=== PATIENT | male | born 1940 | race Caucasian/White ===

== ENCOUNTER 2017-07-16 14:17 | Outpatient (CLI) | payer BC ==
--- NOTE | 2017-07-16 16:04 | RAD ---
CERVICAL SPINE THREE VIEWS: Technique: Lateral views were obtained in neutral, flexion, and extension positions. History: Neck pain. FINDINGS: Cervical vertebrae maintain normal height and alignment. Disc spaces are preserved. There are mild to moderate degenerative changes. Slight anterior listhesis at C4-5 measured at 2-3 mm in the neutral p osition does not appear to significantly change with flexion and extension. There is slight anterolis thesis at C5-6 which does exacerbate with flexion. IMPRESSION: Degenerative changes as described above. POS: [facility]
--- NOTE | 2017-07-16 17:11 | MRI ---
MRI CERVICAL SPINE WITHOUT CONTRAST: Date: 07/16/17 HISTORY: Neck pain for many years. Previous football injuries. COMPARISON: None. TECHNIQUE: Cervical spine MRI is performed without intravenous Gadolinium administration. Multisequential, multi planar imaging is performed. FINDINGS: Appropriate T1 marrow signal intensity of the cervical vertebra. Cervical spine vertebral body height is maintained. No fracture. No significant STIR hyperintensity suggests edema or ligamentous injury. Visualized brain parenchyma, cervicomedullary junction, cervical cord, and the upper thoracic cord kitchen ve a normal size and signal intensity. C2-C3: No significant disc osteophyte complex. No significant central canal stenosis. Neural foramina are pa tent. C3-C4: No significant disc osteophyte complex. No significant central canal stenosis. Right neural foramen i s patent. Mild left foraminal narrowing due to degenerative change of the uncovertebral joint and lef t facet hypertrophy. C4-C5: No significant disc osteophyte complex. No significant central canal stenosis. Neural foramina are pa tent. There is asymmetric right facet hypertrophy. C5-C6: Right paracentral disc osteophyte complex abuts the thecal sac. There is mild deformity of the right hemicord. Mild central canal stenosis. No T2 hyperintensity in the cord. Neural foramina are patent b ilaterally. C6-C7: No significant disc osteophyte complex. No significant central canal stenosis. Foramina are patent bi laterally. C7-T1: No significant disc osteophyte complex. No significant central canal stenosis. Neural foramina are pa tent. IMPRESSION: Degenerative changes of the cervical spine as above. POS: [facility]
== END 2017-07-16 14:18 | disposition home or self-care (01) ==
LOC: TBSIIMAG 14:17
PROVIDERS: ATTEND Neurological Surgery
DX: M50.30 Other cervical disc degeneration, unspecified cervical region (principal); M47.812 Spondylosis without myelopathy or radiculopathy, cervical region
CPT/HCPCS: 72040; 72141

== ENCOUNTER 2018-12-08 10:36 | Outpatient (CLI) | payer BC ==
[~2018-12-08 10:36] MED LIST: Iopamidol 370 76% 100 ML VIAL ONE
[2018-12-08 11:11] LABS: Estimated GFR-MDRD - POC Greater than 90
--- NOTE | 2018-12-08 11:46 | CT ---
CT ANGIOGRAM CHEST WITH CONTRAST, AND 3-D VOLUME RENDERING CLINICAL INDICATION: Aortic ectasia. COMPARISON: None FINDINGS: Pulmonary arteries: No significant filling defect is identified within the pulmonary arteries. Aorta: The ascending thoracic aorta is ectatic with maximal dimension of 4.1 cm. The descending thora cic aorta measures 3.3 cm. Vascular calcifications are seen in the coronary arteries as well as involving the thoracic aorta. There is no evidence of an aortic dissection. Lungs: There are parenchymal changes seen within the left lung base which are worrisome for infectiou s process/pneumonia. Follow-up to resolution is recommended. Filling defects are seen in a few left lower lobe bronchi which may be related to mucous plugging. Linear areas of scarring versus atelectas is are seen in the right middle lobe and lingula. There are pleural based nodular densities along the minor fissure probably related to areas of mild nodular pleural thickening. Mediastinum: There is no evidence of lymphadenopathy. Thyroid gland: Normal CT appearance. Osseous structures: Degenerative changes are seen in the spine. Upper abdomen: There is incomplete visualization of an exophytic fluid attenuation density anterior a spect superior pole left kidney likely related to a cyst. There is also incomplete visualization of an additional smaller hypodense lesion within the medial cortex of the superior pole left kidney. A l obulated hypodense structure is seen at the superior pole right kidney measuring 2.1 cm. Given incomplete visualization of these hypodense structures, follow-up renal sonogram is recommended for f urther characterization. The remainder of the upper abdomen demonstrates a grossly normal CT appearance for phase of imaging. IMPRESSION: 1. Incompletely evaluated hypodense lesion superior pole of each kidney. Renal sonogram is recommende d for further evaluation. 2.Parenchymal changes left lung base which may be related to pneumonia. Clinical evaluation for evide nce of pneumonia is recommended, and follow-up to resolution is also recommended. 3..Mild ectasia of the ascending thoracic aorta. There is no evidence of an aortic dissection. Vascul ar calcifications are seen in the coronary arteries and involving the thoracic aorta. 4. No CT evidence of a pulmonary embolus.
== END 2018-12-08 10:37 | disposition home or self-care (01) ==
LOC: SCSCT 10:36
PROVIDERS: ATTEND Internal Medicine Cardiovascular Disease
DX: I77.819 Aortic ectasia, unspecified site (principal); N28.9 Disorder of kidney and ureter, unspecified; I77.810 Thoracic aortic ectasia; I25.10 Atherosclerotic heart disease of native coronary artery without angina pectoris; I70.0 Atherosclerosis of aorta
CPT/HCPCS: 71275; 82565; Q9967

== ENCOUNTER 2019-01-19 14:30 | Outpatient (CLI) | payer BC ==
--- NOTE | 2019-01-19 16:04 | ULT ---
ULTRASOUND RETROPERITONEUM COMPLETE: (RENAL) DATE: 01/19/2019. HISTORY: A 78-year-old male with bilateral upper pole renal lesions found on CT angiogram of chest. FINDINGS: Right kidney: 13.5 x 5.5 x 5 cm. Left kidney: 12 x 7 x 7 cm. At the apex of the upper pole of the right renal cortex, there is an exophytic approximately 1.5 x 1 cm hypoechoic mass. It is too small to characterize as cystic or solid. Cyst is slightly favored. It corresponds to the right apical renal lesion found CTA of the chest. A 2 x 2 cm right renal mid pole parapelvic renal cyst. A 1.5 x 1.5 x 1.5 cm exophytic cortical cyst protruding from the lateral aspect of the left renal mid pole. Additional similar size adjacent cyst on the left. Urinary bladder volume 120 mL at the time of scan. Bilateral ureteral jets visualized. IMPRESSION: 1. A few bilateral small renal cysts. 2. The small exophytic 1 cm lesion from the apex of the right renal upper pole cortex is too small t o definitively characterize, on both this ultrasound and the CTA. 3. Recommend multiphase CT of abdomen with and without contrast (renal mass protocol) for further ev aluation. IRWIN Conner POS: [facility]
== END 2019-01-19 14:31 | disposition home or self-care (01) ==
LOC: SCSULT 14:30
PROVIDERS: ATTEND Internal Medicine Cardiovascular Disease
DX: N28.1 Cyst of kidney, acquired (principal); N28.89 Other specified disorders of kidney and ureter
CPT/HCPCS: 76770

== ENCOUNTER 2019-02-09 09:32 | Outpatient (CLI) | payer BC ==
[2019-02-09 15:02] LABS: Estimated GFR-MDRD - POC Greater than 90
--- NOTE | 2019-02-09 15:47 | CT ---
CT ABDOMEN AND PELVIS WITH AND WITHOUT IV CONTRAST 02/09/2019 CLINICAL INFORMATION: Cystic bilateral renal lesions. COMPARISON: CTA thorax 12/08/2018. Technique: Multiple contiguous axial CT images are obtained through the abdomen and pelvis with IV contrast. Cor onal reformatted images are provided. FINDINGS: Lower Chest: The parenchymal lung changes at the left lung base have improved likely related to impro vement in pneumonia. There are now slight linear and patchy parenchymal changes at the medial left lung base which could be related to either atelectasis or pneumonitis. There has also been interval d evelopment of parenchymal densities within the right lower lobe worrisome for pneumonia/infectious process. There is minimal bronchiectasis present at the right lung base as well. Vessels: Vascular calcifications are seen in the abdominal aorta and involving the iliac arteries. Abdomen: Portal vein:Patent Gallbladder: Within normal limits for CT imaging. Liver: within normal limits. Spleen: within normal limits. Pancreas: within normal limits. Adrenals: within normal limits. Kidneys: There are multiple subcentimeter too small to characterize hypodense lesions in each kidney in addition to larger hypodense lesions majority of which demonstrate attenuation coefficients compatible with renal cysts. There is a lobulated superior pole right renal cystic lesion which demon strates attenuation coefficient compatible with a cyst. A hyperdense exophytic cystic lesion is seen at the posterior aspect midportion left kidney. No enhancing renal lesions are identified. There are 2 nonobstructing approximately 3 mm calculi in the midportion right kidney with a tiny punc diaz nonobstructing calculus inferior pole left kidney. Bowel: Normal caliber. Appendix: Not visualized, but no secondary signs are seen to suggest appendicitis. Peritoneum: No ascites or free air; no fluid collection. Mesentery and Retroperitoneum: No enlarged mesenteric or retroperitoneal lymph nodes. Abdominal Wall: within normal limits. Pelvis: Reproductive Organs: The prostate gland is heterogeneous and enlarged measuring 5.7 cm in transverse dimensions. Pelvis within normal limits. Bladder: within normal limits. 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 IMPRESSION: 1. Right lower lobe pneumonia. Follow-up to resolution is recommended. 2. Improvement in parenchymal changes at the left lung base, but there are new linear parenchymal mimi nges at the medial left lung base most likely attributable to atelectasis; although, pneumonitis left lung base cannot be entirely excluded. 3. Bilateral renal cysts and subcentimeter too small to characterize hypodense lesions in each kidney . In addition there is a Bosniak type II renal cystic lesion in the left kidney. No enhancing renal mass is identified. 4. Nonobstructing bilateral renal calculi.
== END 2019-02-09 09:33 | disposition home or self-care (01) ==
LOC: SCSCT 09:32
PROVIDERS: ATTEND Internal Medicine Cardiovascular Disease
DX: N28.1 Cyst of kidney, acquired (principal); J18.1 Lobar pneumonia, unspecified organism; R91.8 Other nonspecific abnormal finding of lung field; N28.9 Disorder of kidney and ureter, unspecified
CPT/HCPCS: 74178; 82565

== ENCOUNTER 2019-04-19 10:35 | Outpatient (CLI) | payer BC ==
[2019-04-19 10:58] LABS: Estimated GFR-MDRD - POC Greater than 90
[2019-04-19] MEDS ORDERED: ISOVUE-370 76%-LOCM 1 ML ONE (15:26)
--- NOTE | 2019-04-19 17:29 | CT ---
CT OF THE THORAX WITH IV CONTRAST: 04/19/19 INDICATION: History of lung mass. COMPARISON: Prior CT of the abdomen and pelvis with contrast dated 02/09/19 and a CTA of the thorax dated 12/08/18. FINDINGS: The air space consolidation in the left lower lobe on the prior CTA examination in November 2018 is rita r. There are areas of subsegmental volume loss involving both lower lobes. The right lower lobe pneum onia seen on the CT examination in the abdomen and pelvis dated 02/09/19 has intervally cleared. There areas of subpleural nodularity involving the right upper lobe adjacent to the right minor fissure on image 75 of series 3 measuring 1.1 cm which is stable. Previously seen adjacent nodule in the right upper lobe near the right minor fissure has resolved. This may reflect an area of mild atelectasis. N o enlarged lymph nodes are evident. There is scattered coronary artery and thoracic aortic calcificat ions. The visualized upper abdomen demonstrates stable renal cysts. Adrenal glands are normal appeari ng. There are scattered degenerative and osteoarthritic change. IMPRESSION: 1. Resolution of the air space consolidation involving the right lower lobe seen on the comparis on CT of the abdomen and pelvis dated 02/09/19. Left lower lobe consolidation seen on the comparison e xamination dated 12/08/18 has resolved. 2. There are areas of subsegmental volume loss involving both lower lobes. 3. Subpleural pulmonary nodule right upper lobe adjacent to the right minor fissure is stable in size measuring 1.1 cm. This may reflect an area of persistent subsegmental atelectasis. A similar ap pearing nodule seen within the medial aspect of the lower right upper lobe adjacent to the right tg r fissure, has resolved. As a conservative measure, a follow-up CT examination in 6 months is recomme nded to document stability. POS: [facility]
== END 2019-04-19 10:36 | disposition home or self-care (01) ==
LOC: BICCT 10:35
PROVIDERS: ATTEND Internal Medicine Critical Care Medicine
DX: R91.8 Other nonspecific abnormal finding of lung field (principal)
CPT/HCPCS: 71260; 82565; Q9966

== ENCOUNTER 2020-04-19 08:56 | Outpatient (CLI) | payer BC ==
[2020-04-19 09:51] LABS: Estimated GFR-MDRD - POC Greater than 90
--- NOTE | 2020-04-19 10:11 | CT ---
EXAM: CT of the chest with contrast HISTORY: Lung nodule COMPARISON: 04/19/2019, 12/08/2018 TECHNIQUE: Multiple contiguous axial images were obtained in a CT the chest with contrast. Coronal an d sagittal reformats were performed. FINDINGS: HEART: I ventricular cardiomegaly is seen. Calcifications are seen in the coronary arteries. MEDIASTINUM: No hilar or mediastinal lymphadenopathy. LUNGS: There is a stable 1.2 cm x 0.4 cm area of nodularity along the right minor fissure. This likel y represents either scarring or atelectasis. No other pulmonary nodules are seen. Atelectasis is seen in both lung bases. PLEURAL SPACE: No pneumothorax or pleural effusion. CHEST WALL SOFT TISSUES: Unremarkable OSSEOUS STRUCTURES: Degenerative changes in the spine. VISUALIZED SUBDIAPHRAGMATIC STRUCTURES: Left renal cysts measuring up to 2.1 cm in size. IMPRESSION: Stable area of nodularity along the right minor fissure may represent scarring or focal atelectasis
[2020-04-19] MEDS ORDERED: Iopamidol-370 76% 500 ML 1 ML ONE (13:24)
== END 2020-04-19 08:57 | disposition home or self-care (01) ==
LOC: BICCT 08:56
PROVIDERS: ATTEND Internal Medicine Critical Care Medicine
DX: R91.1 Solitary pulmonary nodule (principal); R91.8 Other nonspecific abnormal finding of lung field
CPT/HCPCS: 71260; 82565; Q9967

== ENCOUNTER 2023-03-07 15:37 | Inpatient (IN) | payer MEDICARE ==
[2023-03-07 17:36] VITALS: BMI 23.6
[2023-03-07] MEDS ORDERED: Ondansetron PF 4 MG/2 ML Vial IVP PRN (19:18)
[2023-03-07] MEDS: Aspirin 81 mg Enteric Coated Tablet PO SCH (21:29)
[2023-03-07] MEDS: Heparin 5,000 UNITS/ML VIAL SC SCH (21:31)
[2023-03-07] MEDS ORDERED: Acetaminophen 325 MG TAB PO PRN (21:47)
[2023-03-07] MEDS: Transdermal Patch Removal TOP SCH (22:17)
[2023-03-08] MEDS: Sodium Chloride 0.9% 1,000 ML IV SCH ×2 (00:28→11:35)
[2023-03-08] MEDS ORDERED: Digoxin 0.5 MG/2 ML AMP SLOW IVP SCH ×3 (02:30→15:00)
[2023-03-08 05:20] LABS: #Basophils 0.1 thou/uL (0.0-0.2); #Monocytes 0.7 thou/uL (0.11-0.59); #Neutrophils 12.8 thou/uL (1.40-6.50); %Basophils 0.4 % (0.0-1.0); %Eosinophils 0.1 % (0.0-10.0); %Lymphocytes 3.4 % (21.0-51.0); %Monocytes 4.7 % (0.0-10.0); %Neutrophils 90.7 % (42.0-75.0); Hemoglobin 13.3 g/dL (14.0-18.0); Mean Corpuscular HGB CONC 32.3 g/dL (32.0-36.0); Mean Corpuscular Hemoglobin 33.9 pg (27.0-31.0); Mean Corpuscular Volume 105.1 fl (78.0-98.0); Mean Platelet Volume 10.4 fL (7.4-10.4); Platelet Count 126 10x3/uL (130-400); RBC Distribution Width 13.4 % (11.5-14.5); Red Blood Cell (RBC) Count 3.92 mill/uL (4.70-6.10); White Blood Cell (WBC) Count 14.2 10x3/uL (4.8-10.8)
[2023-03-08 05:43] LABS: ALT (SGPT) 27 U/L (8-55); AST (SGOT) 46 U/L (5-34); Albumin 3.2 g/dL (3.4-4.8); Alkaline Phosphatase 46 U/L (40-110); Anion Gap 13 mmol/L (10-20); BUN (Urea Nitrogen) 35 mg/dL (8.4-25.7); Bilirubin, Total 0.7 mg/dL (0.2-1.2); Calc. Creatinine Clearance 48 mL/min (70-130); Calcium 8.7 mg/dL (7.8-10.44); Carbon Dioxide 19 mmol/L (23-31); Chloride 108 mmol/L (98-107); Estimated GFR 50; Globulin 2.7 g/dL (2.4-3.5); Glucose 103 mg/dL (83-110); Potassium 4.1 mmol/L (3.5-5.1); Protein, Total 5.9 g/dL (5.8-8.1); Sodium 136 mmol/L (136-145)
[2023-03-08] MEDS ORDERED: LevoFLOXacin 750 MG TAB PO SCH (06:00)
[2023-03-08] MEDS ORDERED: Spironolactone 25 MG TAB PO SCH (08:00)
[2023-03-08 08:31] LABS: CKMB 3.7 ng/mL (0-6.6)
[2023-03-08 08:32] LABS: Lactic Acid 1.5 mmol/L (0.5-2.2)
[2023-03-08] MEDS ORDERED: Lisinopril 2.5 MG TAB PO SCH (09:00)
[2023-03-08] MEDS: Cholecalciferol 1,000 UNITS (25 MCG) TAB PO SCH (09:06)
[2023-03-08] MEDS: Lidocaine 4% Patch TD SCH (09:06)
[2023-03-08] MEDS: Heparin 5,000 UNITS/ML VIAL SC SCH ×3 (09:06→20:23)
[2023-03-08] MEDS: Cyanocobalamin (Vitamin B-12) 1,000 MCG TAB PO SCH (09:06)
[2023-03-08] MEDS: Rosuvastatin 20 MG TAB PO SCH (09:06)
[2023-03-08] MEDS: Folic Acid 1 MG TAB PO SCH (09:06)
[2023-03-08] MEDS: Donepezil HCl 10 MG TAB PO SCH (09:06)
[2023-03-08 09:43] LABS: Magnesium 1.8 mg/dL (1.6-2.6)
[2023-03-08 11:38] LABS: CKMB 4.1 ng/mL (0-6.6)
[2023-03-08] MEDS ORDERED: Piperacillin/Tazobactam 3.375 GM in Sodium Chloride 0.9% 100 ML IVPB SCH (13:15)
[2023-03-08] MEDS ORDERED: Polyethylene Glycol 3350 17 GM Packet PO SCH (14:15)
[2023-03-08] MEDS: Piperacillin/Tazobactam 3.375 GM in Sodium Chloride 0.9% 100 ML IVPB SCH (17:11)
[2023-03-08] MEDS: Aspirin 81 mg Enteric Coated Tablet PO SCH (20:22)
[2023-03-08] MEDS: Transdermal Patch Removal TOP SCH (20:23)
[2023-03-09] MEDS: Piperacillin/Tazobactam 3.375 GM in Sodium Chloride 0.9% 100 ML IVPB SCH ×2 (02:46→10:29)
[2023-03-09 04:48] LABS: #Eosinphils 0.1 thou/uL (0.0-0.7); #Monocytes 0.5 thou/uL (0.11-0.59); #Neutrophils 6.9 thou/uL (1.40-6.50); %Basophils 0.2 % (0.0-1.0); %Eosinophils 0.7 % (0.0-10.0); %Monocytes 6.6 % (0.0-10.0); %Neutrophils 84.1 % (42.0-75.0); Hemoglobin 13.6 g/dL (14.0-18.0); Mean Corpuscular HGB CONC 33.9 g/dL (32.0-36.0); Mean Corpuscular Hemoglobin 33.1 pg (27.0-31.0); Mean Platelet Volume 11.1 fL (7.4-10.4); Platelet Count 108 10x3/uL (130-400); RBC Distribution Width 12.9 % (11.5-14.5); Red Blood Cell (RBC) Count 4.11 mill/uL (4.70-6.10); White Blood Cell (WBC) Count 8.2 10x3/uL (4.8-10.8)
[2023-03-09 05:02] LABS: Manual Diff?? YES; Mean Corpuscular Volume 97.6 fl (78.0-98.0)
[2023-03-09 05:14] LABS: Digoxin 1.49 ng/mL (0.8-2.0); Phosphorus 2.2 mg/dL (2.3-4.7)
[2023-03-09 05:15] LABS: ALT (SGPT) 30 U/L (8-55); AST (SGOT) 44 U/L (5-34); Albumin 3.1 g/dL (3.4-4.8); Alkaline Phosphatase 48 U/L (40-110); Anion Gap 13 mmol/L (10-20); BUN (Urea Nitrogen) 28 mg/dL (8.4-25.7); Bilirubin, Total 0.6 mg/dL (0.2-1.2); Calc. Creatinine Clearance 60 mL/min (70-130); Calcium 8.7 mg/dL (7.8-10.44); Carbon Dioxide 19 mmol/L (23-31); Chloride 111 mmol/L (98-107); Estimated GFR 66; Globulin 2.7 g/dL (2.4-3.5); Glucose 105 mg/dL (83-110); Magnesium 2.1 mg/dL (1.6-2.6); Protein, Total 5.8 g/dL (5.8-8.1); Sodium 139 mmol/L (136-145)
[2023-03-09 06:27] LABS: Band 15 % (5-11); Lymphocytes 8 % (21-51); Monocytes 2 % (0-10); Neutrophil 74 % (42-75); Platelet Adequacy Comment Platelets Decreased; Total Cell Count 100
[2023-03-09] MEDS ORDERED: LevoFLOXacin 750 mg/D5W 750 MG in Premix Bag 1 BAG IVPB SCH (07:00)
[2023-03-09] MEDS ORDERED: PHOS-NAK 1 PKT PACK PO SCH ×2 (09:15→15:00)
[2023-03-09] MEDS: Cholecalciferol 1,000 UNITS (25 MCG) TAB PO SCH (10:28)
[2023-03-09] MEDS: Rosuvastatin 20 MG TAB PO SCH (10:29)
[2023-03-09] MEDS: Donepezil HCl 10 MG TAB PO SCH ×2 (10:29→10:35)
[2023-03-09] MEDS: Folic Acid 1 MG TAB PO SCH (10:29)
[2023-03-09] MEDS: Cyanocobalamin (Vitamin B-12) 1,000 MCG TAB PO SCH (10:30)
[2023-03-09] MEDS ORDERED: Lactated Ringer's 500 ML IV SCH (10:30)
[2023-03-09] MEDS: Lidocaine 4% Patch TD SCH (10:32)
[2023-03-09] MEDS: Polyethylene Glycol 3350 17 GM Packet PO SCH (10:32)
[2023-03-09] MEDS: Heparin 5,000 UNITS/ML VIAL SC SCH ×2 (10:44→14:04)
[2023-03-09] MEDS: AMPicillin 2 GM in Sodium Chloride 0.9% 100 ML IVPB SCH ×4 (14:03→20:57)
[2023-03-09] MEDS ORDERED: Communication Order-Pharmacy FS SCH (18:01)
[2023-03-09 18:42] LABS: Hemoglobin 13.6 g/dL (14.0-18.0)
[2023-03-09 18:43] LABS: Platelet Count 112 10x3/uL (130-400)
[2023-03-09] MEDS: Donepezil HCl 5 MG TAB PO SCH (20:57)
[2023-03-09] MEDS: Aspirin 81 mg Enteric Coated Tablet PO SCH (20:57)
[2023-03-09] MEDS ORDERED: Donepezil HCl 10 MG TAB PO SCH (21:00)
[2023-03-10] MEDS: AMPicillin 2 GM in Sodium Chloride 0.9% 100 ML IVPB SCH ×3 (01:28→09:02)
[2023-03-10] MEDS: Transdermal Patch Removal TOP SCH ×2 (01:28→20:23)
[2023-03-10 05:11] LABS: #Eosinphils 0.2 thou/uL (0.0-0.7); #Monocytes 0.6 thou/uL (0.11-0.59); %Basophils 0.4 % (0.0-1.0); %Eosinophils 1.9 % (0.0-10.0); %Monocytes 7.8 % (0.0-10.0); %Neutrophils 73.7 % (42.0-75.0); Hemoglobin 13.2 g/dL (14.0-18.0); Mean Corpuscular HGB CONC 33.8 g/dL (32.0-36.0); Mean Corpuscular Hemoglobin 33.3 pg (27.0-31.0); Mean Corpuscular Volume 98.7 fl (78.0-98.0); Mean Platelet Volume 11.1 fL (7.4-10.4); Platelet Count 124 10x3/uL (130-400); RBC Distribution Width 12.9 % (11.5-14.5); Red Blood Cell (RBC) Count 3.96 mill/uL (4.70-6.10); White Blood Cell (WBC) Count 8.1 10x3/uL (4.8-10.8)
[2023-03-10 05:18] LABS: Phosphorus 2.2 mg/dL (2.3-4.7)
[2023-03-10 05:19] LABS: ALT (SGPT) 26 U/L (8-55); AST (SGOT) 27 U/L (5-34); Albumin 2.9 g/dL (3.4-4.8); Alkaline Phosphatase 48 U/L (40-110); Anion Gap 11 mmol/L (10-20); BUN (Urea Nitrogen) 22 mg/dL (8.4-25.7); Bilirubin, Total 0.5 mg/dL (0.2-1.2); Calc. Creatinine Clearance 68 mL/min (70-130); Calcium 8.2 mg/dL (7.8-10.44); Carbon Dioxide 21 mmol/L (23-31); Chloride 106 mmol/L (98-107); Estimated GFR 77; Globulin 2.6 g/dL (2.4-3.5); Glucose 99 mg/dL (83-110); Potassium 3.7 mmol/L (3.5-5.1); Protein, Total 5.5 g/dL (5.8-8.1); Sodium 134 mmol/L (136-145)
[2023-03-10] MEDS: Cholecalciferol 1,000 UNITS (25 MCG) TAB PO SCH (09:02)
[2023-03-10] MEDS: Rosuvastatin 20 MG TAB PO SCH (09:03)
[2023-03-10] MEDS: Cyanocobalamin (Vitamin B-12) 1,000 MCG TAB PO SCH (09:03)
[2023-03-10] MEDS: Folic Acid 1 MG TAB PO SCH (09:03)
[2023-03-10] MEDS: Lidocaine 4% Patch TD SCH (09:03)
[2023-03-10] MEDS: Polyethylene Glycol 3350 17 GM Packet PO SCH (09:07)
[2023-03-10] MEDS: PHOS-NAK 1 PKT PACK PO SCH ×3 (09:07→20:22)
[2023-03-10] MEDS ORDERED: Digoxin 0.5 MG/2 ML AMP SLOW IVP SCH (10:45)
[2023-03-10] MEDS ORDERED: Ampicillin 2 GM in Sodium Chloride 0.9% 100 ML IVPB SCH (12:00)
[2023-03-10] MEDS ORDERED: AMPicillin 2 GM in Sodium Chloride 0.9% 100 ML IVPB SCH (12:00)
[2023-03-10] MEDS: Ampicillin 2 GM in Sodium Chloride 0.9% 100 ML IVPB SCH ×2 (14:42→20:22)
[2023-03-10 19:13] LABS: Phosphorus 2.1 mg/dL (2.3-4.7)
[2023-03-10] MEDS: Donepezil HCl 5 MG TAB PO SCH (20:22)
[2023-03-10] MEDS: Aspirin 81 mg Enteric Coated Tablet PO SCH (20:22)
[2023-03-11] MEDS: Ampicillin 2 GM in Sodium Chloride 0.9% 100 ML IVPB SCH ×5 (02:48→20:34)
[2023-03-11 05:24] LABS: #Monocytes 0.8 thou/uL (0.11-0.59); #Neutrophils 4.3 thou/uL (1.40-6.50); %Basophils 0.5 % (0.0-1.0); %Eosinophils 0.5 % (0.0-10.0); %Lymphocytes 18.3 % (21.0-51.0); %Monocytes 13.1 % (0.0-10.0); %Neutrophils 67.1 % (42.0-75.0); Hemoglobin 12.2 g/dL (14.0-18.0); Mean Corpuscular HGB CONC 33.2 g/dL (32.0-36.0); Mean Corpuscular Hemoglobin 32.4 pg (27.0-31.0); Mean Corpuscular Volume 97.6 fl (78.0-98.0); Platelet Count 116 10x3/uL (130-400); Red Blood Cell (RBC) Count 3.76 mill/uL (4.70-6.10); White Blood Cell (WBC) Count 6.4 10x3/uL (4.8-10.8)
[2023-03-11 05:53] LABS: ALT (SGPT) 37 U/L (8-55); AST (SGOT) 37 U/L (5-34); Albumin 2.8 g/dL (3.4-4.8); Alkaline Phosphatase 45 U/L (40-110); Anion Gap 18 mmol/L (10-20); BUN (Urea Nitrogen) 22 mg/dL (8.4-25.7); Bilirubin, Total 0.4 mg/dL (0.2-1.2); Calc. Creatinine Clearance 95 mL/min (70-130); Carbon Dioxide 24 mmol/L (23-31); Chloride 102 mmol/L (98-107); Estimated GFR 92; Globulin 2.5 g/dL (2.4-3.5); Glucose 102 mg/dL (83-110); Potassium 3.5 mmol/L (3.5-5.1); Protein, Total 5.3 g/dL (5.8-8.1); Sodium 140 mmol/L (136-145)
[2023-03-11 05:56] LABS: Phosphorus 3.2 mg/dL (2.3-4.7)
[2023-03-11] MEDS: Folic Acid 1 MG TAB PO SCH (08:29)
[2023-03-11] MEDS: Polyethylene Glycol 3350 17 GM Packet PO SCH (08:29)
[2023-03-11] MEDS: Cholecalciferol 1,000 UNITS (25 MCG) TAB PO SCH (08:29)
[2023-03-11] MEDS: Cyanocobalamin (Vitamin B-12) 1,000 MCG TAB PO SCH (08:29)
[2023-03-11] MEDS: Rosuvastatin 20 MG TAB PO SCH (08:29)
[2023-03-11] MEDS: Lidocaine 4% Patch TD SCH (08:29)
[2023-03-11] MEDS: PHOS-NAK 1 PKT PACK PO SCH ×3 (08:30→20:34)
[2023-03-11] MEDS: Apixaban 5 MG TAB PO SCH (20:34)
[2023-03-11] MEDS: Donepezil HCl 5 MG TAB PO SCH (20:34)
[2023-03-11] MEDS: Aspirin 81 mg Enteric Coated Tablet PO SCH (20:34)
[2023-03-11] MEDS: Transdermal Patch Removal TOP SCH (20:35)
[2023-03-12] MEDS: Ampicillin 2 GM in Sodium Chloride 0.9% 100 ML IVPB SCH ×7 (00:56→23:59)
[2023-03-12 04:24] LABS: Hemoglobin 11.7 g/dL (14.0-18.0); Mean Corpuscular HGB CONC 33.5 g/dL (32.0-36.0); Mean Corpuscular Hemoglobin 33.1 pg (27.0-31.0); Mean Corpuscular Volume 98.9 fl (78.0-98.0); Mean Platelet Volume 10.9 fL (7.4-10.4); Platelet Count 132 10x3/uL (130-400); RBC Distribution Width 13.1 % (11.5-14.5); Red Blood Cell (RBC) Count 3.53 mill/uL (4.70-6.10); White Blood Cell (WBC) Count 5.8 10x3/uL (4.8-10.8)
[2023-03-12 04:25] LABS: Delete Auto Diff?? YES; Manual Diff?? YES
[2023-03-12] MEDS ORDERED: Digoxin 0.5 MG/2 ML AMP SLOW IVP SCH (04:45)
[2023-03-12 04:59] LABS: Band 29 % (5-11); Lymphocytes 17 % (21-51); Metamyelocyte 1 % (0-0); Monocytes 11 % (0-10); Neutrophil 41 % (42-75); Total Cell Count 102
[2023-03-12 05:00] LABS: CellaVision Operator ID LAB.CLH1; Platelet Adequacy Comment Platelets Normal; Polychromasia SLIGHT = 2-3 cells HPF (0-2)
[2023-03-12 05:08] LABS: Chloride 110 mmol/L (98-107); Potassium 4.5 mmol/L (3.5-5.1); Sodium 140 mmol/L (136-145)
[2023-03-12 05:09] LABS: ALT (SGPT) 62 U/L (8-55); AST (SGOT) 70 U/L (5-34); Albumin 2.7 g/dL (3.4-4.8); Alkaline Phosphatase 43 U/L (40-110); Anion Gap 15 mmol/L (10-20); BUN (Urea Nitrogen) 38 mg/dL (8.4-25.7); Bilirubin, Total 0.2 mg/dL (0.2-1.2); Calc. Creatinine Clearance 70 mL/min (70-130); Calcium 8.4 mg/dL (7.8-10.44); Carbon Dioxide 20 mmol/L (23-31); Estimated GFR 79; Glucose 104 mg/dL (83-110); Protein, Total 5.7 g/dL (5.8-8.1)
[2023-03-12] MEDS: Polyethylene Glycol 3350 17 GM Packet PO SCH (08:34)
[2023-03-12] MEDS: Folic Acid 1 MG TAB PO SCH (08:35)
[2023-03-12] MEDS: Cholecalciferol 1,000 UNITS (25 MCG) TAB PO SCH (08:35)
[2023-03-12] MEDS: Cyanocobalamin (Vitamin B-12) 1,000 MCG TAB PO SCH (08:36)
[2023-03-12] MEDS: Apixaban 5 MG TAB PO SCH ×2 (08:36→20:43)
[2023-03-12] MEDS: Rosuvastatin 20 MG TAB PO SCH (08:36)
[2023-03-12] MEDS: Lidocaine 4% Patch TD SCH ×2 (08:36→08:43)
[2023-03-12] MEDS ORDERED: Lactated Ringer's 500 ML IV SCH (15:30)
[2023-03-12] MEDS ORDERED: Metoprolol Tartrate 25 MG TAB PO SCH (15:30)
[2023-03-12] MEDS: Aspirin 81 mg Enteric Coated Tablet PO SCH (20:43)
[2023-03-12] MEDS: Donepezil HCl 5 MG TAB PO SCH (20:43)
[2023-03-12] MEDS: Transdermal Patch Removal TOP SCH (20:44)
[2023-03-13] MEDS: Ampicillin 2 GM in Sodium Chloride 0.9% 100 ML IVPB SCH ×5 (04:09→20:50)
[2023-03-13 04:24] LABS: Hemoglobin 10.4 g/dL (14.0-18.0); Mean Corpuscular HGB CONC 33.4 g/dL (32.0-36.0); Mean Corpuscular Hemoglobin 33.3 pg (27.0-31.0); Mean Corpuscular Volume 99.7 fl (78.0-98.0); Mean Platelet Volume 10.7 fL (7.4-10.4); Platelet Count 168 10x3/uL (130-400); RBC Distribution Width 13.3 % (11.5-14.5); Red Blood Cell (RBC) Count 3.12 mill/uL (4.70-6.10); White Blood Cell (WBC) Count 8.6 10x3/uL (4.8-10.8)
[2023-03-13 04:37] LABS: Manual Diff?? YES
[2023-03-13 04:38] LABS: Delete Auto Diff?? YES
[2023-03-13 04:56] LABS: ALT (SGPT) 52 U/L (8-55); AST (SGOT) 44 U/L (5-34); Albumin 2.7 g/dL (3.4-4.8); Alkaline Phosphatase 38 U/L (40-110); Anion Gap 12 mmol/L (10-20); BUN (Urea Nitrogen) 35 mg/dL (8.4-25.7); Bilirubin, Total 0.2 mg/dL (0.2-1.2); Calc. Creatinine Clearance 103 mL/min (70-130); Calcium 8.3 mg/dL (7.8-10.44); Carbon Dioxide 25 mmol/L (23-31); Chloride 112 mmol/L (98-107); Estimated GFR 94; Globulin 2.5 g/dL (2.4-3.5); Glucose 112 mg/dL (83-110); Protein, Total 5.2 g/dL (5.8-8.1); Sodium 145 mmol/L (136-145)
[2023-03-13 05:40] LABS: Band 2 % (5-11); CellaVision Operator ID LAB.JMM; Large Platelets 5.1 % (0-5); Lymphocytes 20 % (21-51); Monocytes 3 % (0-10); Neutrophil 74 % (42-75); Platelet Adequacy Comment Platelets Normal; RBC Morphology Within Normal Limits; Smudge Cells 23.5 %; Total Cell Count 98
[2023-03-13] MEDS ORDERED: Digoxin 0.125 MG TAB PO SCH (07:30)
[2023-03-13] MEDS: Folic Acid 1 MG TAB PO SCH (09:33)
[2023-03-13] MEDS: Cyanocobalamin (Vitamin B-12) 1,000 MCG TAB PO SCH (09:33)
[2023-03-13] MEDS: Lidocaine 4% Patch TD SCH (09:33)
[2023-03-13] MEDS: Apixaban 5 MG TAB PO SCH (09:33)
[2023-03-13] MEDS: Cholecalciferol 1,000 UNITS (25 MCG) TAB PO SCH (09:33)
[2023-03-13] MEDS: Rosuvastatin 20 MG TAB PO SCH (09:33)
[2023-03-13] MEDS: Polyethylene Glycol 3350 17 GM Packet PO SCH (09:34)
[2023-03-13] MEDS ORDERED: Pantoprazole 40 MG VIAL IVP SCH (10:00)
[2023-03-13] MEDS ORDERED: Polyethylene Glycol 3350 17 GM Packet PO PRN (14:20)
[2023-03-13 17:27] LABS: Hemoglobin 9.3 g/dL (14.0-18.0)
[2023-03-13] MEDS: Dronedarone HCl 400 MG TAB PO SCH (17:39)
[2023-03-13] MEDS: Donepezil HCl 5 MG TAB PO SCH (20:51)
[2023-03-13] MEDS: Pantoprazole 40 MG VIAL IVP SCH (20:52)
[2023-03-13] MEDS: Transdermal Patch Removal TOP SCH (22:05)
[2023-03-14] MEDS: Ampicillin 2 GM in Sodium Chloride 0.9% 100 ML IVPB SCH ×7 (00:43→21:53)
[2023-03-14 05:18] LABS: Hemoglobin 8.2 g/dL (14.0-18.0); Mean Corpuscular HGB CONC 32.9 g/dL (32.0-36.0); Mean Corpuscular Hemoglobin 33.1 pg (27.0-31.0); Mean Corpuscular Volume 100.4 fl (78.0-98.0); Mean Platelet Volume 11.4 fL (7.4-10.4); Platelet Count 209 10x3/uL (130-400); RBC Distribution Width 13.6 % (11.5-14.5); Red Blood Cell (RBC) Count 2.48 mill/uL (4.70-6.10); White Blood Cell (WBC) Count 6.9 10x3/uL (4.8-10.8)
[2023-03-14 05:57] LABS: ALT (SGPT) 81 U/L (8-55); AST (SGOT) 83 U/L (5-34); Albumin 2.7 g/dL (3.4-4.8); Alkaline Phosphatase 36 U/L (40-110); Anion Gap 9 mmol/L (10-20); BUN (Urea Nitrogen) 38 mg/dL (8.4-25.7); Bilirubin, Total 0.2 mg/dL (0.2-1.2); Calc. Creatinine Clearance 100 mL/min (70-130); Calcium 8.1 mg/dL (7.8-10.44); Carbon Dioxide 29 mmol/L (23-31); Chloride 110 mmol/L (98-107); Estimated GFR 93; Globulin 2.4 g/dL (2.4-3.5); Glucose 112 mg/dL (83-110); Potassium 3.7 mmol/L (3.5-5.1); Protein, Total 5.1 g/dL (5.8-8.1); Sodium 144 mmol/L (136-145)
[2023-03-14 06:09] LABS: Manual Diff?? YES
[2023-03-14 06:10] LABS: Delete Auto Diff?? YES
[2023-03-14 06:46] LABS: Band 3 % (5-11); CellaVision Operator ID lab.abc; Eosinophils 1 % (0-10); Lymphocytes 28 % (21-51); Macrocytosis SLIGHT = 6-15 cells HPF (0-5); Monocytes 4 % (0-10); Neutrophil 64 % (42-75); Platelet Adequacy Comment Platelets Normal; Total Cell Count 100
[2023-03-14] MEDS ORDERED: Phenylephrine 10 MG/ML VIAL ONE (08:29)
[2023-03-14] MEDS ORDERED: Ketamine 50 MG/ML (10ML VIAL) ONE (08:29)
[2023-03-14] MEDS ORDERED: PROPOFOL 200 MG/20 ML VIAL ONE (08:34)
[2023-03-14] MEDS ORDERED: EPINEPHrine 1 MG/10 ML Abboject SYRINGE ONE (08:34)
[2023-03-14] MEDS ORDERED: Lidocaine 1% PF 5 ML VIAL ONE (08:34)
[2023-03-14] MEDS ORDERED: Digoxin 0.125 MG TAB PO SCH (09:00)
[2023-03-14] MEDS: Cyanocobalamin (Vitamin B-12) 1,000 MCG TAB PO SCH (10:37)
[2023-03-14] MEDS: Cholecalciferol 1,000 UNITS (25 MCG) TAB PO SCH (10:37)
[2023-03-14] MEDS: Folic Acid 1 MG TAB PO SCH (10:37)
[2023-03-14] MEDS: Lidocaine 4% Patch TD SCH (10:38)
[2023-03-14] MEDS: Dronedarone HCl 400 MG TAB PO SCH ×2 (10:38→18:02)
[2023-03-14] MEDS: Rosuvastatin 20 MG TAB PO SCH (10:38)
[2023-03-14] MEDS: Pantoprazole 80 MG in Sodium Chloride 0.9% 100 ML IVPB SCH ×2 (10:38→21:26)
[2023-03-14] MEDS: Pantoprazole 40 MG VIAL IVP SCH (13:55)
[2023-03-14 14:43] LABS: Hemoglobin 7.1 g/dL (14.0-18.0)
[2023-03-14] MEDS: Donepezil HCl 5 MG TAB PO SCH (20:34)
[2023-03-14] MEDS: Transdermal Patch Removal TOP SCH (20:35)
[2023-03-14 21:46] LABS: Hemoglobin 7.8 g/dL (14.0-18.0)
[2023-03-15] MEDS: Ampicillin 2 GM in Sodium Chloride 0.9% 100 ML IVPB SCH ×6 (02:53→22:31)
[2023-03-15 05:07] LABS: #Eosinphils 0.5 thou/uL (0.0-0.7); #Monocytes 0.5 thou/uL (0.11-0.59); #Neutrophils 5.9 thou/uL (1.40-6.50); %Basophils 0.4 % (0.0-1.0); %Eosinophils 5.3 % (0.0-10.0); %Monocytes 5.3 % (0.0-10.0); %Neutrophils 66.4 % (42.0-75.0); Hemoglobin 8.3 g/dL (14.0-18.0); Mean Corpuscular HGB CONC 33.2 g/dL (32.0-36.0); Mean Corpuscular Hemoglobin 32.5 pg (27.0-31.0); Mean Platelet Volume 10.7 fL (7.4-10.4); Platelet Count 218 10x3/uL (130-400); Red Blood Cell (RBC) Count 2.55 mill/uL (4.70-6.10); White Blood Cell (WBC) Count 8.9 10x3/uL (4.8-10.8)
[2023-03-15] MEDS: Cyanocobalamin (Vitamin B-12) 1,000 MCG TAB PO SCH (08:27)
[2023-03-15] MEDS: Dronedarone HCl 400 MG TAB PO SCH ×2 (08:27→17:27)
[2023-03-15] MEDS: Rosuvastatin 20 MG TAB PO SCH (08:27)
[2023-03-15] MEDS: Folic Acid 1 MG TAB PO SCH (08:27)
[2023-03-15] MEDS: Cholecalciferol 1,000 UNITS (25 MCG) TAB PO SCH (08:27)
[2023-03-15] MEDS: Lidocaine 4% Patch TD SCH (08:28)
[2023-03-15] MEDS: Pantoprazole 80 MG in Sodium Chloride 0.9% 100 ML IVPB SCH ×2 (09:41→18:26)
[2023-03-15] MEDS: Lactated Ringer's 1,000 ML IV SCH (09:44)
[2023-03-15 13:00] LABS: Hemoglobin 8.4 g/dL (14.0-18.0)
[2023-03-15] MEDS: Donepezil HCl 5 MG TAB PO SCH (20:46)
[2023-03-15] MEDS: Transdermal Patch Removal TOP SCH (20:49)
[2023-03-16] MEDS: Lactated Ringer's 1,000 ML IV SCH (00:42)
[2023-03-16] MEDS: Ampicillin 2 GM in Sodium Chloride 0.9% 100 ML IVPB SCH ×6 (02:48→21:50)
[2023-03-16 04:23] LABS: #Eosinphils 0.6 thou/uL (0.0-0.7); #Monocytes 0.5 thou/uL (0.11-0.59); #Neutrophils 4.5 thou/uL (1.40-6.50); %Basophils 0.5 % (0.0-1.0); %Eosinophils 7.2 % (0.0-10.0); %Lymphocytes 31.3 % (21.0-51.0); %Monocytes 5.5 % (0.0-10.0); %Neutrophils 54.6 % (42.0-75.0); Mean Corpuscular HGB CONC 31.7 g/dL (32.0-36.0); Mean Corpuscular Hemoglobin 32.3 pg (27.0-31.0); Mean Platelet Volume 10.4 fL (7.4-10.4); Platelet Count 240 10x3/uL (130-400); RBC Distribution Width 14.7 % (11.5-14.5); Red Blood Cell (RBC) Count 2.48 mill/uL (4.70-6.10); White Blood Cell (WBC) Count 8.2 10x3/uL (4.8-10.8)
[2023-03-16 04:38] LABS: Mean Corpuscular Volume 101.6 fl (78.0-98.0)
[2023-03-16 04:54] LABS: Anion Gap 9 mmol/L (10-20); BUN (Urea Nitrogen) 21 mg/dL (8.4-25.7); Calc. Creatinine Clearance 89 mL/min (70-130); Calcium 7.7 mg/dL (7.8-10.44); Carbon Dioxide 24 mmol/L (23-31); Chloride 108 mmol/L (98-107); Estimated GFR 90; Glucose 109 mg/dL (83-110); Potassium 3.3 mmol/L (3.5-5.1); Sodium 138 mmol/L (136-145)
[2023-03-16] MEDS: Pantoprazole 80 MG in Sodium Chloride 0.9% 100 ML IVPB SCH (06:49)
[2023-03-16] MEDS ORDERED: Potassium Chloride 20 MEQ TAB PO SCH (08:15)
[2023-03-16] MEDS: Cholecalciferol 1,000 UNITS (25 MCG) TAB PO SCH (09:35)
[2023-03-16] MEDS: Dronedarone HCl 400 MG TAB PO SCH ×2 (09:36→18:10)
[2023-03-16] MEDS: Cyanocobalamin (Vitamin B-12) 1,000 MCG TAB PO SCH (09:36)
[2023-03-16] MEDS: Folic Acid 1 MG TAB PO SCH (09:36)
[2023-03-16] MEDS: Rosuvastatin 20 MG TAB PO SCH (09:37)
[2023-03-16] MEDS: Lidocaine 4% Patch TD SCH (09:37)
[2023-03-16 13:39] LABS: Hemoglobin 9.8 g/dL (14.0-18.0)
[2023-03-16] MEDS: Pantoprazole 80 MG, Admixture Fee 1 EACH in Sodium Chloride 0.9% 100 ML IVPB SCH (19:26)
[2023-03-16] MEDS: Donepezil HCl 5 MG TAB PO SCH (21:50)
[2023-03-16] MEDS: Transdermal Patch Removal TOP SCH (21:50)
[2023-03-17] MEDS: Ampicillin 2 GM in Sodium Chloride 0.9% 100 ML IVPB SCH ×6 (02:58→21:37)
[2023-03-17] MEDS: Pantoprazole 80 MG, Admixture Fee 1 EACH in Sodium Chloride 0.9% 100 ML IVPB SCH (04:07)
[2023-03-17 05:15] LABS: #Basophils 0.1 thou/uL (0.0-0.2); #Eosinphils 0.6 thou/uL (0.0-0.7); #Monocytes 0.7 thou/uL (0.11-0.59); #Neutrophils 6.6 thou/uL (1.40-6.50); %Basophils 0.5 % (0.0-1.0); %Eosinophils 5.5 % (0.0-10.0); %Lymphocytes 22.9 % (21.0-51.0); %Monocytes 6.3 % (0.0-10.0); Mean Corpuscular HGB CONC 33.2 g/dL (32.0-36.0); Mean Corpuscular Hemoglobin 31.5 pg (27.0-31.0); Mean Corpuscular Volume 94.8 fl (78.0-98.0); Mean Platelet Volume 10.2 fL (7.4-10.4); Platelet Count 261 10x3/uL (130-400); RBC Distribution Width 16.5 % (11.5-14.5); Red Blood Cell (RBC) Count 2.86 mill/uL (4.70-6.10); White Blood Cell (WBC) Count 10.3 10x3/uL (4.8-10.8)
[2023-03-17 05:39] LABS: Anion Gap 10 mmol/L (10-20); BUN (Urea Nitrogen) 12 mg/dL (8.4-25.7); Calc. Creatinine Clearance 102 mL/min (70-130); Calcium 7.6 mg/dL (7.8-10.44); Carbon Dioxide 24 mmol/L (23-31); Chloride 109 mmol/L (98-107); Estimated GFR 94; Glucose 105 mg/dL (83-110); Potassium 3.7 mmol/L (3.5-5.1); Sodium 139 mmol/L (136-145)
[2023-03-17] MEDS: Dronedarone HCl 400 MG TAB PO SCH ×2 (10:26→17:16)
[2023-03-17] MEDS: Cholecalciferol 1,000 UNITS (25 MCG) TAB PO SCH (10:26)
[2023-03-17] MEDS: Folic Acid 1 MG TAB PO SCH (10:26)
[2023-03-17] MEDS: Rosuvastatin 20 MG TAB PO SCH (10:26)
[2023-03-17] MEDS: Cyanocobalamin (Vitamin B-12) 1,000 MCG TAB PO SCH (10:26)
[2023-03-17] MEDS: Lidocaine 4% Patch TD SCH (12:42)
[2023-03-17] MEDS: Donepezil HCl 5 MG TAB PO SCH (21:37)
[2023-03-17] MEDS: Transdermal Patch Removal TOP SCH (21:41)
[2023-03-18 04:29] LABS: #Eosinphils 0.4 thou/uL (0.0-0.7); #Monocytes 0.6 thou/uL (0.11-0.59); %Basophils 0.4 % (0.0-1.0); %Eosinophils 3.9 % (0.0-10.0); %Lymphocytes 26.2 % (21.0-51.0); %Monocytes 6.4 % (0.0-10.0); %Neutrophils 62.2 % (42.0-75.0); Hemoglobin 9.1 g/dL (14.0-18.0); Mean Corpuscular HGB CONC 33.2 g/dL (32.0-36.0); Mean Corpuscular Hemoglobin 31.4 pg (27.0-31.0); Mean Corpuscular Volume 94.5 fl (78.0-98.0); Mean Platelet Volume 10.4 fL (7.4-10.4); Platelet Count 309 10x3/uL (130-400); RBC Distribution Width 16.4 % (11.5-14.5); White Blood Cell (WBC) Count 9.6 10x3/uL (4.8-10.8)
[2023-03-18 05:01] LABS: Anion Gap 10 mmol/L (10-20); BUN (Urea Nitrogen) 11 mg/dL (8.4-25.7); Calc. Creatinine Clearance 102 mL/min (70-130); Calcium 7.7 mg/dL (7.8-10.44); Carbon Dioxide 25 mmol/L (23-31); Chloride 105 mmol/L (98-107); Estimated GFR 94; Glucose 94 mg/dL (83-110); Potassium 3.5 mmol/L (3.5-5.1); Sodium 136 mmol/L (136-145)
[2023-03-18] MEDS ORDERED: Lidocaine 4% Patch TD PRN (08:36)
[2023-03-18] MEDS: Cyanocobalamin (Vitamin B-12) 1,000 MCG TAB PO SCH (09:18)
[2023-03-18] MEDS: Cholecalciferol 1,000 UNITS (25 MCG) TAB PO SCH (09:18)
[2023-03-18] MEDS: Rosuvastatin 20 MG TAB PO SCH (09:18)
[2023-03-18] MEDS: Folic Acid 1 MG TAB PO SCH (09:19)
[2023-03-18] MEDS: Dronedarone HCl 400 MG TAB PO SCH (09:19)
[2023-03-18 13:22] VITALS: BP 111/66; TEMP 97.8
== END 2023-03-18 14:20 | DRG 871 ==
LOC: 2NO 16:52
PROVIDERS: ADMIT Family Medicine; ATTEND Family Medicine
PROC: 30233N1 Transfusion of Nonautologous Red Blood Cells into Peripheral Vein, Percutaneous Approach (ICD-10-PCS; principal; 2023-03-14)
PROC: 0W3P8ZZ Control Bleeding in Gastrointestinal Tract, Via Natural or Artificial Opening Endoscopic (ICD-10-PCS; 2023-03-14)
DX: A41.9 Sepsis, unspecified organism (principal); G93.41 Metabolic encephalopathy; K26.4 Chronic or unspecified duodenal ulcer with hemorrhage; I21.A1 Myocardial infarction type 2; N17.9 Acute kidney failure, unspecified; N39.0 Urinary tract infection, site not specified; I50.22 Chronic systolic (congestive) heart failure; I42.9 Cardiomyopathy, unspecified; I47.1 Supraventricular tachycardia; D62 Acute posthemorrhagic anemia; I48.92 Unspecified atrial flutter; I48.91 Unspecified atrial fibrillation; Z66 Do not resuscitate; Z96.641 Presence of right artificial hip joint; I08.1 Rheumatic disorders of both mitral and tricuspid valves; E83.39 Other disorders of phosphorus metabolism; R53.1 Weakness; R53.81 Other malaise; E86.0 Dehydration; I11.0 Hypertensive heart disease with heart failure; G47.33 Obstructive sleep apnea (adult) (pediatric); F03.90 Unspecified dementia, unspecified severity, without behavioral disturbance, psychotic disturbance, mood disturbance, and anxiety; M19.90 Unspecified osteoarthritis, unspecified site; Z79.899 Other long term (current) drug therapy; Z79.82 Long term (current) use of aspirin; I48.0 Paroxysmal atrial fibrillation
CPT/HCPCS: 36415; 36430; 71045; 72100; 72170; 74018; 80048; 80053; 80162; 81001; 82274; 82553; 83605; 83735; 84100; 84443; 84484; 85025; 86850; 86900; 86901; 87040; 87077; 87086; 87149; 87186; 87324; 87449; 93005; 93010; 93306; 96372; 96374; 96375; C9113; J0171; J0290; J0696; J1160; J1644; J1650; J2370; J2543; J2704; J3010; J3490; J7050; J7120; P9016

== ENCOUNTER 2023-07-13 05:40 | Day surgery (SDC) | payer MEDICARE ==
[2023-07-08 13:17] VITALS: BMI 20.6
[2023-07-08 14:34] LABS: Hematocrit 42.8 % (38.8-50.0); Hemoglobin 14.2 g/dL (13.5-17.5); Mean Corpuscular HGB CONC 33.2 g/dL (32.0-36.0); Mean Corpuscular Hemoglobin 31.6 pg (27.0-33.0); Mean Corpuscular Volume 95.1 fl (81.2-95.1); Mean Platelet Volume 10.1 fl (7.4-10.4); Platelet Count 420 10x3/uL (150-450); White Blood Cell (WBC) Count 6.8 10x3/uL (3.5-10.5)
[2023-07-08 14:56] LABS: Anion Gap 16 mmol/L (10-20); BUN (Urea Nitrogen) 16 mg/dL (8.4-25.7); Calc. Creatinine Clearance 80 mL/min (70-130); Calcium 9.4 mg/dL (7.8-10.44); Carbon Dioxide 25 mmol/L (23-31); Chloride 104 mmol/L (98-107); Estimated GFR 90; Glucose 93 mg/dL (83-110); Sodium 141 mmol/L (136-145)
[2023-07-08 15:01] LABS: INR-International Normal Ratio 1.1; PTT 27.5 sec (22.0-33.0); Prothrombin Time 11.5 sec (9.5-12.1)
[2023-07-13] MEDS ORDERED: fentaNYL 50 mcg/mL 1 mL Vial ONE (07:56)
[2023-07-13] MEDS ORDERED: PROPOFOL 200 MG/20 ML VIAL ONE (08:01)
== END 2023-07-13 09:25 | disposition home or self-care (01) ==
LOC: SDC 05:40
PROVIDERS: ATTEND Internal Medicine Cardiovascular Disease
PROC: B246ZZZ Ultrasonography of Right and Left Heart (ICD-10-PCS; principal; 2023-07-13)
DX: I48.19 Other persistent atrial fibrillation (principal); F03.90 Unspecified dementia, unspecified severity, without behavioral disturbance, psychotic disturbance, mood disturbance, and anxiety; Z95.818 Presence of other cardiac implants and grafts; Z79.82 Long term (current) use of aspirin; Z79.899 Other long term (current) drug therapy
CPT/HCPCS: 80048; 85027; 85610; 85730; 93005; 93312; J3010; 93010; J2704

== ENCOUNTER 2024-02-26 05:53 | Inpatient (IN) | payer MEDICARE ==
[2024-02-25 13:25] VITALS: BMI 19.9
[2024-02-26] MEDS ORDERED: fentaNYL 50 mcg/mL 1 mL Vial ONE (06:56)
[2024-02-26] MEDS ORDERED: Ondansetron PF 4 MG/2 ML Vial ONE (06:56)
[2024-02-26] MEDS ORDERED: PROPOFOL 20 ML ONE (06:56)
[2024-02-26] MEDS ORDERED: Lidocaine 2% PF 5 ML VIAL ONE (06:56)
[2024-02-26] MEDS ORDERED: Ketamine In 0.9 % NaCl 50 MG/5 ML SYRINGE ONE (06:56)
[2024-02-26] MEDS ORDERED: Rocuronium Bromide 10 MG/ML (10ML VIAL) ONE (06:56)
[2024-02-26] MEDS ORDERED: Dexamethasone 4 mg/ml Vial ONE (06:56)
[2024-02-26 07:12] LABS: #Basophils 0.05 10x3/uL (0.0-0.2); %Basophils 0.9 % (0.0-1.0); %Eosinophils 9.5 % (0.0-10.0); %Lymphocytes 29.8 % (21.0-51.0); %Monocytes 7.2 % (0.0-10.0); %Neutrophils 52.4 % (42.0-75.0); Hematocrit 39.9 % (42.0-52.0); Hemoglobin 13.2 g/dL (14.0-18.0); Mean Corpuscular HGB CONC 33.1 g/dL (32.0-36.0); Mean Corpuscular Hemoglobin 32.6 pg (27.0-31.0); Mean Corpuscular Volume 98.5 fL (78.0-98.0); Mean Platelet Volume 9.6 fL (7.4-10.4); Platelet Count 238 10x3/uL (130-400); RBC Distribution Width 13.6 % (11.5-14.5); Red Blood Cell (RBC) Count 4.05 mill/uL (4.70-6.10)
[2024-02-26] MEDS ORDERED: Sodium Chloride 0.9% 100 ML ONE (07:25)
[2024-02-26] MEDS ORDERED: CEFAZOLIN 2 GM VIAL ONE (07:25)
[2024-02-26 07:26] LABS: Prothrombin Time 13.2 sec (12.0-14.7)
[2024-02-26 07:27] LABS: PTT 27.8 sec (22.9-36.1)
[2024-02-26 07:30] LABS: Anion Gap 10 mmol/L (10-20); BUN (Urea Nitrogen) 13 mg/dL (8.4-25.7); Calc. Creatinine Clearance 91 mL/min (70-130); Calcium 9.1 mg/dL (7.8-10.44); Carbon Dioxide 32 mmol/L (23-31); Chloride 102 mmol/L (98-107); Estimated GFR 93; Glucose 92 mg/dL (83-110); Potassium 3.5 mmol/L (3.5-5.1); Sodium 140 mmol/L (136-145)
[2024-02-26] MEDS ORDERED: Etomidate 40 MG (20 mL) VIAL ONE (07:36)
[2024-02-26] MEDS ORDERED: Glycopyrrolate 0.2 MG/ML 5 ML SYRINGE ONE (08:04)
[2024-02-26] MEDS ORDERED: PHENYLEPHRINE-NS 100 MCG/ML 10 ML SYRINGE ONE (08:04)
[2024-02-26] MEDS ORDERED: Esmolol 100 MG/10 ML VIAL ONE (08:04)
[2024-02-26] MEDS ORDERED: Ondansetron HCl/PF 4 MG/2 ML Vial IVP PRN (08:12)
[2024-02-26] MEDS ORDERED: Promethazine HCl 25 MG/ML VIAL IM PRN (08:12)
[2024-02-26] MEDS ORDERED: HYDROmorphone 2 MG/ML VIAL SLOW IVP PRN (08:12)
[2024-02-26] MEDS ORDERED: fentaNYL PF 100 MCG/2 ML SYRINGE ONE ×2 (08:14→09:47)
[2024-02-26] MEDS ORDERED: SUGAMMADEX SODIUM 200 MG/2 ML VIAL ONE (08:57)
[2024-02-26] MEDS ORDERED: fentaNYL 50 mcg/mL 1 mL Vial SLOW IVP PRN (09:10)
[2024-02-26] MEDS ORDERED: Ondansetron PF 4 MG/2 ML Vial IVP PRN (09:10)
[2024-02-26] MEDS ORDERED: traMADol HCl 50 MG TAB PO PRN (09:10)
[2024-02-26] MEDS ORDERED: Communication Order-Pharmacy FS SCH (09:15)
[2024-02-26] MEDS ORDERED: HYDROmorphone 0.5 MG/0.5 ML SYRINGE ONE (09:38)
[2024-02-26] MEDS: Gabapentin 100 MG CAP PO SCH ×2 (15:58→19:30)
[2024-02-26] MEDS: HYDROcodone/Acetaminophen 5/325 mg Tablet PO PRN (15:58)
[2024-02-26] MEDS: busPIRone HCl 5 MG TAB PO SCH (15:58)
[2024-02-26] MEDS: CEFAZOLIN 2 GM in Sodium Chloride 0.9% 100 ML IVPB SCH (16:05)
[2024-02-26] MEDS: Aspirin 81 mg Enteric Coated Tablet PO SCH (19:30)
[2024-02-26] MEDS: Flecainide 50 MG TAB PO SCH (19:30)
[2024-02-26] MEDS: Donepezil HCl 5 MG TAB PO SCH (19:30)
[2024-02-26] MEDS: Pantoprazole DR 40 MG TAB PO SCH (19:30)
[2024-02-26] MEDS: Acetaminophen 325 MG TAB PO SCH (19:30)
[2024-02-27 05:33] LABS: #Basophils Less than 0.03 10x3/uL (0.0-0.2); #Eosinphils Less than 0.03 10x3/uL (0.0-0.7); %Basophils 0.1 % (0.0-1.0); %Lymphocytes 13.8 % (21.0-51.0); %Monocytes 12.2 % (0.0-10.0); %Neutrophils 73.6 % (42.0-75.0); Hematocrit 28.8 % (42.0-52.0); Hemoglobin 9.5 g/dL (14.0-18.0); Mean Corpuscular Hemoglobin 32.6 pg (27.0-31.0); Mean Platelet Volume 10.3 fL (7.4-10.4); Platelet Count 213 10x3/uL (130-400); RBC Distribution Width 13.6 % (11.5-14.5); Red Blood Cell (RBC) Count 2.91 mill/uL (4.70-6.10)
[2024-02-27] MEDS: DULoxetine 30 MG CAP PO SCH (09:26)
[2024-02-27] MEDS: Tamsulosin HCl 0.4 MG CAP PO SCH (09:27)
[2024-02-27] MEDS ORDERED: busPIRone HCl 5 MG TAB PO SCH (15:00)
[2024-02-27] MEDS ORDERED: Gabapentin 100 MG CAP PO SCH ×2 (21:00)
[2024-02-27] MEDS ORDERED: Flecainide 50 MG TAB PO SCH (21:00)
[2024-02-27] MEDS ORDERED: Pantoprazole DR 40 MG TAB PO SCH (21:00)
[2024-02-27] MEDS ORDERED: Donepezil HCl 10 MG TAB PO SCH (21:00)
[2024-02-28 05:33] LABS: #Basophils 0.04 10x3/uL (0.0-0.2); %Basophils 0.4 % (0.0-1.0); %Eosinophils 2.6 % (0.0-10.0); %Lymphocytes 11.4 % (21.0-51.0); %Monocytes 12.7 % (0.0-10.0); %Neutrophils 72.5 % (42.0-75.0); Hematocrit 25.1 % (42.0-52.0); Hemoglobin 8.2 g/dL (14.0-18.0); Mean Corpuscular HGB CONC 32.7 g/dL (32.0-36.0); Mean Corpuscular Hemoglobin 32.4 pg (27.0-31.0); Mean Corpuscular Volume 99.2 fL (78.0-98.0); Mean Platelet Volume 10.1 fL (7.4-10.4); Platelet Count 162 10x3/uL (130-400); RBC Distribution Width 13.8 % (11.5-14.5); Red Blood Cell (RBC) Count 2.53 mill/uL (4.70-6.10)
[2024-02-28 06:45] LABS: Anion Gap 9 mmol/L (10-20); BUN (Urea Nitrogen) 25 mg/dL (8.4-25.7); Calc. Creatinine Clearance 82 mL/min (70-130); Calcium 8.3 mg/dL (7.8-10.44); Carbon Dioxide 31 mmol/L (23-31); Chloride 98 mmol/L (98-107); Estimated GFR 91; Glucose 111 mg/dL (83-110); Potassium 3.6 mmol/L (3.5-5.1); Sodium 134 mmol/L (136-145)
[2024-02-28] MEDS ORDERED: Tamsulosin HCl 0.4 MG CAP PO SCH (09:00)
[2024-02-28] MEDS ORDERED: DULoxetine 30 MG CAP PO SCH (09:00)
[2024-02-28 13:19] LABS: Hematocrit 24.8 % (42.0-52.0); Hemoglobin 8.2 g/dL (14.0-18.0)
[2024-02-28] MEDS: Melatonin 3 MG TAB PO PRN (21:28)
[2024-02-29] MEDS: Bisacodyl 10 MG SUPP PR PRN (05:42)
[2024-02-29 08:40] LABS: Hemoglobin 7.9 g/dL (14.0-18.0); Mean Corpuscular HGB CONC 32.9 g/dL (32.0-36.0); Mean Corpuscular Hemoglobin 33.3 pg (27.0-31.0); Mean Corpuscular Volume 101.3 fL (78.0-98.0); Mean Platelet Volume 10.1 fL (7.4-10.4); Platelet Count 177 10x3/uL (130-400); RBC Distribution Width 13.6 % (11.5-14.5); Red Blood Cell (RBC) Count 2.37 mill/uL (4.70-6.10)
[2024-03-01 15:46] VITALS: BP 96/55; TEMP 99
== END 2024-03-01 18:11 | DRG 522 ==
LOC: SDC 05:53 → SURG A 10:38
PROVIDERS: ADMIT Orthopaedic Surgery; ATTEND Orthopaedic Surgery
PROC: 0SRS0JZ Replacement of Left Hip Joint, Femoral Surface with Synthetic Substitute, Open Approach (ICD-10-PCS; principal; 2024-02-26)
DX: S72.002A Fracture of unspecified part of neck of left femur, initial encounter for closed fracture (principal); I42.8 Other cardiomyopathies; I50.42 Chronic combined systolic (congestive) and diastolic (congestive) heart failure; E78.5 Hyperlipidemia, unspecified; F03.90 Unspecified dementia, unspecified severity, without behavioral disturbance, psychotic disturbance, mood disturbance, and anxiety; I11.0 Hypertensive heart disease with heart failure; I48.0 Paroxysmal atrial fibrillation; M19.90 Unspecified osteoarthritis, unspecified site; D64.89 Other specified anemias; G62.9 Polyneuropathy, unspecified; Z86.73 Personal history of transient ischemic attack (TIA), and cerebral infarction without residual deficits; Z79.899 Other long term (current) drug therapy; Z79.82 Long term (current) use of aspirin; W19.XXXA Unspecified fall, initial encounter; Y93.89 Activity, other specified; Y92.89 Other specified places as the place of occurrence of the external cause
CPT/HCPCS: 36415; 72170; 80048; 83735; 85025; 85027; 85610; 85730; C1713; C1776; J1100; J1170; J2001; J2405; J2704; J3010; J3490